=== PATIENT | female | born 1965 | race African-American/Black ===

== ENCOUNTER → 2016-06-13 | Outpatient (CLI) | payer BC ==
[~2016-06-13] MED LIST: HYZAAR 50-12.1 UDTAB PO; LEVAQUIN 5500 MG/TA1 PO; MULTI VITAMINS1 TAB PO; NORMODYNE200 MG PO; PREDNISONE20 MG PO; ROBAXIN 50500 MG/TAB PO; ULTRAM 50MG TAB50 MG; VENTOLIN0.09 MG
== END ==
LOC: MC.RAD 13:20
DX: Z12.31 Encounter for screening mammogram for malignant neoplasm of breast (principal)

== ENCOUNTER → 2019-09-02 | Outpatient (CLI) | payer BC | LOC: MC.RAD 07:30 | DX: Z12.31 Encounter for screening mammogram for malignant neoplasm of breast (principal) ==